=== PATIENT | male | born 1970 | race Caucasian/White ===

== ENCOUNTER 2017-04-01 17:37 | Emergency (ER) | payer OTHER ==
[2017-04-01] MEDS ORDERED: TOBRAMYCIN 0.3% OPHTH 25 DROP/5 ML BTL ONE (18:08)
--- NOTE | 2017-04-01 18:12 | ER NURSING DOCUMENTATION ---
Nurse's Notes [facility] Name:Loco Li Age:47 yrs Sex:Male :1970 Arrival Date:04/01/2017 Time:17:37 Bed2 Private MD: Diagnosis:Mcgrew eye Presentation: 04/01 17:46 Acuity: KENNY 4 sc1 17:50 Presenting complaint: Patient states: red left eye. States he was treated for pink eye sc1 and was clear for about a week and now it's becoming red again. Transition of care: Home. Notified ED Physician of patient's arrival and CC Reece Soler notified. 17:50 Method Of Arrival: Private Vehicle sc1 Triage Assessment: 17:52 General: Appears comfortable, well developed, well nourished, well groomed, Behavior is sc1 cooperative, pleasant. Pain: Denies pain. Historical: - Allergies: No known drug Allergies; - Home Meds: 1. Zyrtec Oral - PMHx: None; - Ebola Screening: : Patient negative for fever greater than or equal to 101.5 degrees Fahrenheit, and additional compatible Ebola Virus Disease symptoms. Patient denies exposure to infectious person. Patient denies travel to an Ebola-affected area in the 21 days before illness onset. No symptoms or risks identified at this time. . - Immunization history: Flu Vaccine < 1 year. - Social history: Smoking status: Patient states was never smoker of tobacco. Patient/guardian denies using alcohol, street drugs, IV drugs, marijuana. Screenin:53 Infectious Disease Risk None. Abuse screen: Denies threats or abuse. Nutritional sc1 screening: No deficits noted. Vital Signs: 17:52 BP 132 / 75; Pulse 75; Resp 16; Temp 98.0; Pulse Ox 93% on R/A; sc1 ED Course: 17:40 Patient arrived in ED. ama 17:42 Gaudencio Newell MD is Attending Physician. 17:46 Triage completed. sc1 17:53 Notified ED Physician of patient's arrival and chief complaint. Dr. Newell notified. Arm sc1 band placed on Bed in low position Call Light in Re[place]. Administered Medications: 17:54 Drug: Tobradex Drops (0.3 %-0.1 %) 2 drops; Route: Ophthalmic; Site: left eye; pa1 Outcome: 17:53 Discharge ordered by . lonnie 18:10 Patient left the ED. sc1 Signatures: Aleida Betts RN RN sc1 Gaudencio Newell MD MD jm A[place], [place], [place] [facility] ama
--- NOTE | 2017-04-01 18:12 | ER PHYSICIAN DOCUMENTATION ---
Physician Documentation [facility] Name:Loco Li Age:47 yrs Sex:Male :1970 Arrival Date:04/01/2017 Time:17:37 Bed2 Private MD: Gaudencio Seo Disposition: 04/01/17 17:53 Discharged to Home/Self Care. Impression: Dry Prong eye. - Condition is Good. - Discharge Instructions: Conjunctivitides - CONJUNCTIVITIS, Non-Specific. - Prescriptions for Tobramycin Sulfate 0.3 % Ophthalmic Drops - instill 2 drop by OPHTHALMIC route every 4 hours; 5 milliliter. - Medical Reconciliation form form. - Follow up: Private Physician; When: As needed; Reason: Continuance of care. - Problem is new. - Symptoms have improved. HPI: 04/03 10:45 This 47 yrs old Male presents to ER via Private Vehicle with complaints of jm Eye Problem - L. 10:45 The patient is experiencing redness. Onset: The symptom(s)/episode began/occurred jm today. Associated signs and symptoms: Pertinent positives: d/c. Historical: - Allergies: No known drug Allergies; - Home Meds: 1. Zyrtec Oral - PMHx: None; - Ebola Screening: : Patient negative for fever greater than or equal to 101.5 degrees Fahrenheit, and additional compatible Ebola Virus Disease symptoms. Patient denies exposure to infectious person. Patient denies travel to an Ebola-affected area in the 21 days before illness onset. No symptoms or risks identified at this time. . - Immunization history: Flu Vaccine < 1 year. - Social history: Smoking status: Patient states was never smoker of tobacco. Patient/guardian denies using alcohol, street drugs, IV drugs, marijuana. ROS: 10:45 Constitutional: Negative for fever. jm 10:45 Eyes: Positive for discharge, itching, redness. Exam: 10:45 Constitutional: The patient appears alert, awake. jm 10:45 Eyes: Periorbital structures: appear normal, Conjunctiva: injected, in the left eye. Vital Signs: 04/01 17:52 BP 132 / 75; Pulse 75; Resp 16; Temp 98.0; Pulse Ox 93% on R/A; sc1 MDM: 17:40 Patient medically screened. jm 18:00 Differential diagnosis: Infectious conjunctivitis in left eye. Data reviewed: vital jm signs, nurses notes, and as a result, I will *Transfer Patient. Counseling: I had a detailed discussion with the patient and/or guardian regarding: the historical points, exam findings, and any diagnostic results supporting the discharge/admit diagnosis, the need for outpatient follow up, with the patient's primary care provider. Dispensed Medications: 17:54 Drug: Tobradex Drops (0.3 %-0.1 %) 2 drops; Route: Ophthalmic; Site: left eye; [facility] [place] Signatures: Aleida Betts RN RN sc1 Gaudencio Newell MD MD jm
== END 2017-04-01 18:11 | disposition home or self-care (01) ==
LOC: ER 17:37
DX: H10.022 Other mucopurulent conjunctivitis, left eye (principal)
CPT/HCPCS: 99282